=== PATIENT | female | born 1990 | race Caucasian/White ===

== ENCOUNTER → 2020-05-19 15:30 | Outpatient (CLI) | payer OTHER, SELFPAY ==
--- NOTE | ~2020-05-19 | US_ITS ---
US retroperitoneal comp 05/19/2020 15:56 Procedure: Realtime transabdominal ultrasound of the kidneys and bladder. Indication: Chronic cystitis with hematuria Comparison: No prior studies for comparison. Findings: Renal echotexture is normal bilaterally without hydronephrosis, contour deforming mass or r enal calculus. The right kidney measures 9.4 cm and left kidney measures 11.4 cm. Bladder within nor mal limits. Impression: 1: Unremarkable renal ultrasound. No stones, masses or hydronephrosis. Reviewed, dictated and finalized at location B. Impression: 1: Unremarkable renal ultrasound. No stones, masses or hydronephrosis.
== END ==
PROVIDERS: Visit Provider Nurse Practitioner Adult Health
DX: N30.21 Other chronic cystitis with hematuria (principal)
CPT/HCPCS: 76770

== ENCOUNTER 2021-02-19 16:00 | Inpatient (IN) | payer OTHER, SELFPAY ==
[2021-02-19] VITALS (8 sets, daily range): BP systolic 113–130; BP diastolic 70–88; PULSE 82–99; RESP 16; TEMP 36.9; BMI 27.7
[2021-02-19 16:41] LABS: Basophils Percent Auto 0.2 % (0.2-1.2); Eosinophils Percent Auto 0.3 % (0-4.4); Hematocrit 31.9 % (37.0-47.0); Hemoglobin 10.7 g/dL (12.0-15.0); Immature Granulocyte Absolute 0.08 K/mm3 (0.00-0.031); Immature Granulocyte Percent A 0.7 % (0-0.5); Lymphocytes Absolute Auto 1.76 K/mm3 (0.9-3.2); Lymphocytes Percent Auto 15.3 % (18.3-44.2); Mean Corpuscular HGB Conc 33.5 g/dl (32-36); Mean Corpuscular Hemoglobin 28.7 pg (26-34); Mean Corpuscular Volume 85.5 fl (80-100); Mean Platelet Volume 10.5 fl (7.4-10.4); Monocytes Absolute Auto 0.7 K/mm3 (0.1-0.6); Monocytes Percent Auto 5.8 % (2.6-8.5); Neutrophils Absolute Auto 8.9 K/mm3 (1.3-6.7); Neutrophils Percent Auto 77.7 % (45.5-73.1); Platelet Count Result 262 k/mm3 (150-375); Red Blood Count 3.73 M/mm3 (4.2-5.4); Red Cell Distribution Width 13.1 % (11.5-14.5); White Blood Count 11.5 K/mm3 (4.5-10.0)
[2021-02-19] MEDS: DINOPROSTONE 10 MG VAG INSERT VAGINAL (16:52)
--- NOTE | 2021-02-19 17:34 | LDADM ---
This patient, Breann Sanderson, was admitted to Labor/Delivery/Recovery 109 on 02/19/21 at 16:00. Plans for labor, pain management and were discussed with patient. Patient/family oriented to hospital policies and general routines including ID bracelet, bed and alarms, visiting hours, pain management, procedures, bathroom and other care routines, personal items, smoking policy, room service/diet and guest tray routines, infant security routines,call light and visiting hours. Patient/Family are encouraged to report perceived risks to care and to ask questions if they do not understand what they are told or what they should do. See OBIX for further documentation.
--- NOTE | 2021-02-19 17:48 | WPDANESEPP ---
Anes - Eval Pre Procedure Procedure: Labor epidural Date/Time: 02/19/21 17:48 Surgeon: Jennifer Preop Diagnosis: Abd pain with contractions Pre Op Diagnosis: Induction of Labor Patient Data Age: 30 Gender: F Height: 5 ft 2 in Weight: 68.7 kg Last Vital Signs Pulse 98 02/19/21 17:30 BP 125/88 02/19/21 17:30 Allergies Allergy/AdvReac Type Severity Reaction Status Date / Time codeine AdvReac Vomiting Verified 01/22/21 12:22 Home Medications Medication Instructions Recorded Confirmed Type PNV cmb#95-ferrous fumarate-FA 1 tablet PO DAILY 01/22/21 01/22/21 History [] Laboratory Tests 02/19/21 02/19/21 02/19/21 16:31 16:31 16:31 WBC 11.5 K/mm3 H K/mm3 (4.5-10.0) RBC 3.73 M/mm3 L M/mm3 (4.2-5.4) Hgb 10.7 g/dL L g/dL (12.0-15.0) Hct 31.9 % L % (37.0-47.0) MCV 85.5 fl fl (80-100) MCH 28.7 pg pg (26-34) MCHC 33.5 g/dl g/dl (32-36) RDW 13.1 % % (11.5-14.5) Plt Count 262 k/mm3 k/mm3 (150-375) MPV 10.5 fl H fl (7.4-10.4) Immature Gran % (Auto) 0.7 % H % (0-0.5) Neut % (Auto) 77.7 % H % (45.5-73.1) Lymph % (Auto) 15.3 % L % (18.3-44.2) [place] % (Auto) 5.8 % % (2.6-8.5) Eos % (Auto) 0.3 % % (0-4.4) Baso % (Auto) 0.2 % % (0.2-1.2) Lymph # (Auto) 1.76 K/mm3 K/mm3 (0.9-3.2) [place] # (Auto) 0.7 K/mm3 H K/mm3 (0.1-0.6) Eos # (Auto) 0.0 K/mm3 K/mm3 (0-0.3) Baso # (Auto) 0.0 K/mm3 K/mm3 (0.0-0.1) Abs Immat Gran (auto) 0.08 K/mm3 H K/mm3 (0.00-0.031) Absolute Neuts (auto) 8.9 K/mm3 H K/mm3 (1.3-6.7) Absolute Nucleated RBC 0.0 K/mm3 K/mm3 (0.0-0.012) Nucleated RBC % 0.0 % % (0.0-0.2) RPR Pending Blood Type B Positive Antibody Screen Negative Patient hx anesthesia problems: none Family hx anesthesia problems: none PMFSH Past Medical History Medical History Anxiety Overweight (BMI 25.0-29.9) and not yet delivered Family History Family History Mother Hypertension Pancreatic cancer Social History Social History Smoking status: Never smoker Substance use: never Gender identity (if verbalized by the patient): Female Spiritual care concerns: No Exam Day of Procedure 02/19/21 17:48 Patient weight: overweight Airway: Mallampati scale class II Neurological: alert and oriented
[2021-02-20] VITALS (155 sets, daily range): BP systolic 97–158; BP diastolic 53–131; PULSE 65–129; RESP 16–18; TEMP 36.2–37.4; O2SAT 78–100
[2021-02-20] MEDS: LACTATED RINGERS 1,000 ML 125 ML IV CONT ×2 (05:16→08:56)
[2021-02-20 08:24] LABS: Rapid Plasma Reagin Non-Reactive (NonReactive)
[2021-02-20] MEDS: ONDANSETRON INJ 4 MG/2 ML VIAL IV PUSH (09:40)
--- NOTE | 2021-02-20 15:10 | P.PCNOB_ITS ---
OB - Delivery Note Procedure Route of delivery: Episiotomy description: None Laceration Description: Perineal - 2nd Degree Delivery repair: chromic Specimen: No Quantitative Blood Loss (ml): 450 Anesthesia type: Epidural Disposition: floor Narrative: Patient prepped and draped in usual manner for this procedure. Mat ernal expulsive efforts readily delivered vertex with nuchal cord readily reduced. Rest of baby was delivered over intact perineum cord was clamped and cut and placenta delivered spontaneously. Cervix vagina vulva were inspected with second-degree midline laceration noted. This was approximated using 2 0 chromic to approximate as the tissue in a running interlocking manner then with the deep tissue and a subcuticular manner of 2 0 chromic as well. At this point seizure was considered terminated uterus was well contracted not bleeding significantly and there were no other lacerations or tears. Baby Weeks of gestation at delivery: 39 Infant gender: Male Weight (pounds): 8 Weight (ounces): 2 score one minute: 8 score five minutes: 9
--- NOTE | 2021-02-20 15:10 | WPDHPUPDATE1 ---
History and Physical Update Update Date/Time: 02/20/21 15:10 History and Physical has been reviewed, including an updated exam of the patient. There are NO changes in the patient's condition. Risks, benefits, and alternatives have been discussed and questions answered. Patient agrees to proceed with procedure.
--- NOTE | 2021-02-20 15:10 | WPDOBADMIT ---
Obstetrics - Admit Note Admission Note: record reviewed. No pertinent additions to the history and/or any subsequent changes in the physical findings that are not consistent with the expected course of the were found. Additions to the history and/or subsequent changes in the physical findings follow. None.
[2021-02-20] MEDS: OXYTOCIN 30 UNITS/NS 500 ML 30 UNITS/500 ML BAG 125 UNITS IV CONT (15:33)
--- NOTE | 2021-02-20 18:34 | PC.NURSE ---
Patient transferred to post room #285 via wheelchair. Support person present. Oriented to unit, room, information board, rooming in, admission packet and security measures. Patient verbalizes understanding.
[2021-02-20] MEDS: IBUPROFEN 600 MG TABLET PO (18:52)
[2021-02-21] MEDS: IBUPROFEN 600 MG TABLET PO ×4 (03:18→22:46)
[2021-02-21 03:20] VITALS: BP 115/80; PULSE 77; RESP 18; TEMP 36.6
[2021-02-21 05:18] LABS: Hematocrit 27.2 % (37.0-47.0); Hemoglobin 8.7 g/dL (12.0-15.0)
[2021-02-21 08:00] VITALS: BP 108/68; PULSE 81; RESP 18; TEMP 36.6; O2SAT 97
[2021-02-21] MEDS: SERTRALINE HCL 25 MG TABLET PO (09:25)
[2021-02-21] MEDS: DOCUSATE SODIUM 100 MG CAPSULE PO ×2 (09:25→16:36)
[2021-02-21] MEDS: POLYSACCHARIDE IRON COMPLEX 150 MG CAPSULE PO ×2 (09:25→16:36)
[2021-02-21] MEDS: MULTIVIT/MIN/PREN/FOL AC/IRON TABLET 1 TAB PO (09:26)
--- NOTE | 2021-02-21 11:00 | PM.OBDSVD ---
DS: Admitting Diagnosis Admitting Diagnosis Admitting Diagnosis: OB - DS: Summary OB Procedures : None OB Procedures Intrapartum: Spontaneous Vag Delivery OB Procedures: : None Time Spent with Patient Time attestation: Total time spent providing and/or coordinating discharge services: DS: Data Data Completed and Pending Labs on day of discharge: Labs from last 24 hours 02/21/21 03:28 Hgb 8.7 L Hct 27.2 L Discharge Plan Discharge Discharging Clinician: Edgardo Rodriguez Patient Disposition: Home, Self-Care Activity: as tolerated Diet: as tolerated Patient Instructions: Antibiotic Form Stand Alone Forms: General Discharge Information Follow-up/Referrals: Edgardo Rodriguez MD [Physician] - 3 Weeks Discharge Medications: New ibuprofen 600 mg Tablet 600 mg PO Q6H PRN (Reason: Cramping) Qty: 30 RF: 0 Continued PNV cmb#95-ferrous fumarate-FA [] 28 mg iron- 800 mcg Tablet 1 tablet PO DAILY RF: 0 sertraline 25 mg tablet 25 mg PO DAILY RF: 0 Date of admission: 02/19/21 16:00 Primary Care Provider: Ashley,Apurva Moore Admitting Provider: Edgardo Rodriguez Attending physician on admission: Edgardo Rodriguez Condition: Stable
[2021-02-21 12:30] VITALS: BP 108/61; PULSE 83; RESP 16; TEMP 36.6; O2SAT 99
--- NOTE | 2021-02-21 13:28 | WPDANLDPN2 ---
Anes-Prog Note L&D Date/Time: 02/21/21 13:28 Comfortable throughout: labor and delivery Neuraxial method: epidural Epidural/Spinal procedure site: clean & non-tender Neuro status: Neuro function grossly intact. Cardiovascular status: normal Respiratory status: normal Airway patency: baseline Mental status: baseline Post-Op hydration status: normal Vital Signs: Last Vital Signs Temp 36.6 C 02/21/21 12:30 Pulse 83 02/21/21 12:30 Resp 16 02/21/21 12:30 BP 108/61 02/21/21 12:30 Pulse Ox 99 02/21/21 12:30 Pain score (VAS): 0 I/O: Intake & Output 02/20/21 02/21/21 02/21/21 23:59 07:59 15:59 Intake Total 240 Balance 240 Post-procedural complaints: none Patient feedback: Patient satisfied with anesthetic care.
[2021-02-21 21:20] VITALS: BP 120/82; PULSE 88; RESP 16; TEMP 36.8; O2SAT 98
[2021-02-22 07:30] VITALS: BP 108/72; PULSE 84; RESP 18; TEMP 36.4; O2SAT 98
[2021-02-22] MEDS: POLYSACCHARIDE IRON COMPLEX 150 MG CAPSULE PO (07:40)
[2021-02-22] MEDS: DOCUSATE SODIUM 100 MG CAPSULE PO (07:40)
[2021-02-22] MEDS: MULTIVIT/MIN/PREN/FOL AC/IRON TABLET 1 TAB PO (07:41)
[2021-02-22] MEDS: IBUPROFEN 600 MG TABLET PO (07:41)
[2021-02-22] MEDS: SERTRALINE HCL 25 MG TABLET PO (07:46)
[2021-02-22] MEDS: WITCH HAZEL 40 PADS 1 PAD TOPICAL (07:46)
--- NOTE | 2021-02-22 10:58 | PC.NURSE ---
Patient viewed the discharge video Mother & Baby Care, The First Two Weeks . Patient was given the opportunity and encouraged to ask questions. Patient verbalized understanding of information shared and has been given the mother/baby guide for home reference.
[2021-02-24 09:15] VITALS: BP 126/77; PULSE 79; RESP 20; TEMP 36.6; O2SAT 100
== END 2021-02-22 13:15 | disposition home or self-care (01) | DRG 807 ==
LOC: ANHLDR 16:10 → ANHOB2 02-20 18:36
PROVIDERS: Admitting Provider Obstetrics & Gynecology; PCP Family Medicine; Visit Provider Obstetrics & Gynecology
DX: O69.81X0 Labor and delivery complicated by cord around neck, without compression, not applicable or unspecified (principal); Z37.0 Single live birth; Z3A.40 40 weeks gestation of pregnancy; O36.8330 Maternal care for abnormalities of the fetal heart rate or rhythm, third trimester, not applicable or unspecified; O70.1 Second degree perineal laceration during delivery; O99.344 Other mental disorders complicating childbirth; F41.9 Anxiety disorder, unspecified
CPT/HCPCS: 36415; 85014; 85018; 85025; 86592; 86850; 86900; 86901; A9270; J2405; J2590; J2795; J7120

== ENCOUNTER → 2023-05-02 15:37 | Outpatient (CLI) | payer OTHER, SELFPAY ==
--- NOTE | ~2023-05-02 | MM_ITS ---
EXAMINATION: MM screening stefani BI w [facility] HISTORY: Screening mammogram, family history of breast cancer in her mother and sister. TECHNIQUE: Craniocaudal and mediolateral oblique 3-D tomosynthesis images were obtained and synthetic 2-D images were generated. CAD analysis was submitted and interpreted. COMPARISON: None, baseline BREAST PARENCHYMAL COMPOSITION: The breasts are heterogeneously dense, which may obscure small masses . FINDINGS: No suspicious mass, calcification, or architectural distortion are identified in either sukhdeep ast to suggest malignancy. IMPRESSION: 1. No mammographic evidence of malignancy. 2. Recommend routine screening mammography beginning at age 40. BI-RADS Category 1: Negative Reviewed, dictated and finalized at location A.
== END ==
PROVIDERS: PCP Family Medicine; Visit Provider Obstetrics & Gynecology
DX: Z12.31 Encounter for screening mammogram for malignant neoplasm of breast (principal); Z80.3 Family history of malignant neoplasm of breast
CPT/HCPCS: 77063; 77067

== ENCOUNTER 2024-07-25 15:40 | Outpatient (CLI) | payer OTHER, SELFPAY ==
--- NOTE | ~2024-07-25 | US_ITS ---
EXAMINATION: US retroperitoneal comp DATE: 07/25/2024 16:03 INDICATION: Chronic urinary tract infections. TECHNIQUE: Multiple ultrasound grayscale images of the kidneys were obtained. COMPARISON: Ultrasound 05/19/2020 FINDINGS: The right kidney measures 11.8 x 4.1 x 5.1 cm. The left kidney measures 12.2 x 4.8 x 5.8 cm. The kidn eys demonstrate normal parenchymal echogenicity. There is no hydronephrosis. The bladder is normal. IMPRESSION: 1. Normal kidneys. No hydronephrosis. Reviewed, dictated and finalized at location A. [employer]
== END 2024-07-25 15:41 | disposition home or self-care (01) ==
LOC: MICIMG 15:41
PROVIDERS: PCP Family Medicine; Visit Provider Nurse Practitioner Family
DX: N30.21 Other chronic cystitis with hematuria (principal)
CPT/HCPCS: 76770